=== PATIENT | male | born 1985 | race Caucasian/White ===

== ENCOUNTER 2021-05-23 08:01 | Day surgery (SDC) | payer OTHER ==
[~2021-05-23] VITALS: Ht 182 cm; Wt 89.2 kg
[~2021-05-23 08:01] MED LIST: ACET500 PO; AMPDEX5 PO; CYCL10 PO; IBUP800 PO; MULVITA PO
--- NOTE | 2021-05-23 09:34 | NUR ---
[facility] in [facility] warming gown applied. History, Chart, Medications and Allergies reviewed before start of procedure.Lungs clear T/O to Auscultation. Patient confirms NPO status and agrees with scheduled surgery. Pre-Op teaching done. Pt verbalizes understanding. Patient States Post-Procedure ride home has been arranged. Patient reports completing Chlorhexadine shower X2 prior to admission to hospital.
--- NOTE | 2021-05-23 12:29 | NUR ---
RECIEVED PATIENT AND REPORT, VSS DRESSING CDI
--- NOTE | 2021-05-23 12:59 | NUR ---
Discharge instructions reviewed with patient. Patient verbalizes understanding. Copy given to patient to take home. Discharged via wheelchair to private car for ride home.
== END 2021-05-23 13:00 | disposition home or self-care (01) ==
LOC: ORSCMMR 08:01 → ORD 09:30 → ORSCMMR 13:00
PROVIDERS: Surgery
PROC: 0JB40ZZ Excision of Right Neck Subcutaneous Tissue and Fascia, Open Approach (ICD-10-PCS; principal; 2021-05-23 09:30)
PROC: 0JB50ZZ Excision of Left Neck Subcutaneous Tissue and Fascia, Open Approach (ICD-10-PCS; principal; 2021-05-23 09:30)
DX: D17.0 Benign lipomatous neoplasm of skin and subcutaneous tissue of head, face and neck (principal); Z87.891 Personal history of nicotine dependence; Z79.899 Other long term (current) drug therapy
CPT/HCPCS: 88304; J0690; J1100; J1885; J2250; J2405; J2704; J3010; J7120

== ENCOUNTER → 2021-07-18 | Outpatient (CLI) | payer OTHER ==
[2021-07-21 01:09] LABS: CHLAMYDIA TRACHOMATIS, NAA Negative (Negative)
== END | disposition home or self-care (01) ==
LOC: LAB 14:45 → LAB SHORT 14:45
PROVIDERS: Family Medicine
DX: N50.819 Testicular pain, unspecified (principal)
CPT/HCPCS: 87491; 87591

== ENCOUNTER 2021-11-22 22:26 | Emergency (ER) | payer OTHER ==
[~2021-11-22] VITALS: Ht 182.9 cm; Wt 90.7 kg
[2021-11-22] MEDS ORDERED: ALPR.25 PO (22:35)
[2021-11-23] MEDS ORDERED: SIME80CH PO (00:07)
[2021-11-23] MEDS ORDERED: DOCU100 PO (00:07)
== END 2021-11-23 00:16 | disposition home or self-care (01) ==
LOC: ER 22:26
DX: K59.03 Drug induced constipation (principal); T40.2X5A Adverse effect of other opioids, initial encounter; Z87.891 Personal history of nicotine dependence
CPT/HCPCS: 99283

== ENCOUNTER 2022-07-07 03:19 | Inpatient (IN) | payer OTHER ==
[~2022-07-07] VITALS: Ht 182.9 cm; Wt 81.7 kg
[~2022-07-07 03:19] MED LIST changes: +ALPR.25 PO; +DOCU100 PO; +SIME80CH PO
[2022-07-07 04:05] LABS: BASOPHILS ABSOLUTE AUTO 0.03 K/mm3 (0.00-0.23); BASOPHILS PERCENT AUTO 0 % (0-2); EOSINOPHILS PERCENT AUTO 0 % (0-6); Hematocrit 42.8 % (37.0-53.0); Hemoglobin 14.4 g/dL (13.5-17.5); IMMATURE GRAN ABSOLUTE AUTO 0.01 K/mm3 (0.00-0.10); IMMATURE GRAN PERCENT AUTO 0 % (0-1); LYMPHOCYTES ABSOLUTE AUTO 1.25 K/mm3 (0.84-5.20); LYMPHOCYTES PERCENT AUTO 15 % (21-46); MONOCYTES ABSOLUTE AUTO 0.78 K/mm3 (0.16-1.47); MONOCYTES PERCENT AUTO 10 % (4-13); Mean Corpuscular HGB 32.7 pg (26.0-34.0); Mean Corpuscular HGB Conc 33.6 g/dL (31.5-36.5); Mean Corpuscular Volume 97 fL (80-100); Mean Platelet Volume 10.7 fL (9.1-12.4); NEUTROPHILS ABSOLUTE AUTO 6.12 K/mm3 (1.96-9.15); NEUTROPHILS PERCENT AUTO 75 % (41-73); Platelet Count 109 K/mm3 (150-400); RDW Coefficient Variation 13.9 % (11.7-14.2); RDW Standard Deviation 50.2 fL (35.1-46.3); White Blood Cell Count 8.19 K/mm3 (4.00-11.30)
[2022-07-07 04:30] LABS: Magnesium, Blood 1.9 mg/dL (1.6-2.4)
[2022-07-07 04:47] LABS: Albumin, Blood 4.1 g/dL (3.4-5.0); Bilirubin, Total 0.4 mg/dL (0.1-1.0); Bun/Creatinine Ratio 17.9 (12.0-20.0); Calcium, Blood 8.3 mg/dL (8.5-10.1); Creatinine, Blood 0.56 mg/dL (0.60-1.20); Potassium, Blood 3.9 mmol/L (3.5-5.5); Total Protein, Blood 8.1 g/dL (6.4-8.2)
[2022-07-07] MEDS ORDERED: SERT25 PO (10:39)
--- NOTE | 2022-07-07 16:59 | NUR ---
SHIFT SUMMARY S/P ALCOHOLIC PANCREATITIS, A/O X4, VSS, TOLERATING PO (WATER c PO MEDS), PAIN BETTER MANAGED AFTER INCREASING FENTANYL TO 50 MCG, WITHDRAW SYMPTOMS REMAIN MILD OTHER THAN TREMORS BUT MANAGED WITH ORDERED MEDS (SEE EMAR). NO ACUTE EVENTS THIS SHIFT, WILL CTM AND REPEAT CIWA AND REPORT TO ONCOMING NOC RN.
--- NOTE | 2022-07-08 04:53 | NUR ---
SHIFT SUMMARY PT CONTINUES TO HAVE INTERMITTENT ABD PAIN, MEDICAITING PER EMAR. PT REPORTS THAT HE IS HUNGRY. PT CONTINUES TO BE NPO PER ORDERS. NO N/V. IVF FLUID PER ORDERS. CIWA'S UNDER 8, AVERAGE SCORE 4. HE HAS NOT REQUIRED LIBRIUM OR ATIVAN THIS SHIFT. PT HAS BEEN INDEPENDENT IN THE ROOM, BED IN LOWEST POSITION, CALL LIGHT WITHIN REACH.
[2022-07-08 05:38] LABS: Albumin, Blood 3.4 g/dL (3.4-5.0); Anion Gap 6 mmol/L (6-16); Blood Urea Nitrogen 5 mg/dL (8-24); Bun/Creatinine Ratio 10.4 (12.0-20.0); CO2, Blood 27 mmol/L (21-32); Calcium, Blood 6.8 mg/dL (8.5-10.1); Chloride, Blood 103 mmol/L (98-108); Creatinine, Blood 0.48 mg/dL (0.60-1.20); Glomerular Filtration Rate 138 (60-); Glucose, Blood 80 mg/dL (70-99); Phosphorus, Blood 1.2 mg/dL (2.5-4.9); Potassium, Blood 3.8 mmol/L (3.5-5.5); Sodium, Blood 136 mmol/L (136-145)
--- NOTE | 2022-07-08 18:38 | NUR ---
SHIFT SUMMARY PT A/O X4 AND IND IN ROOM. PT ADMITTED FOR PAIN MANAGEMENT RELATED TO PANCREATITIS. PT EXPERIENCING ETOH WITHDRAWAL AND TREATED PER EMR. SEE MAR HISTORY. ADVANCED TO CLEAR LIQUIDS AND TOLERATING DIET WELL. VSS.
--- NOTE | 2022-07-09 05:18 | NUR ---
SHIFT SUMMARY PT SLEPT FOR A GOOD PORTION OF THE SHIFT AFTER BEING MEDICATED FOR ETOH WITHDRAWAL AND PAIN JUST SHORTLY BEFORE SHIFT CHANGE. CIWA SCORES HAVE BEEN LOW THIS SHIFT HIGHEST SCORE WAS 4. PT SHOWING SOME MILD ANXIETY, NO AGITATION. DENIES VISUAL OR AUDITORY HALLUCINATIONS. PT CONTINUES TO HAVE ABD PAIN, HE HAS BEEN ABLE TO KEEP DOWN CLEAR LIQUIDS. PT HAS BEEN INDEPENDENT IN THE ROOM. CALLS APPROPRIATELY. NO ACUTE CHANGES OVERNIGHT, BED IN LOWEST POSITION, CALL LIGHT WITHIN REACH.
[2022-07-09 06:01] LABS: Albumin, Blood 3.1 g/dL (3.4-5.0); Anion Gap 9 mmol/L (6-16); Blood Urea Nitrogen 3 mg/dL (8-24); Bun/Creatinine Ratio 5.5 (12.0-20.0); CO2, Blood 27 mmol/L (21-32); Calcium, Blood 6.6 mg/dL (8.5-10.1); Chloride, Blood 100 mmol/L (98-108); Creatinine, Blood 0.54 mg/dL (0.60-1.20); Glomerular Filtration Rate 133 (60-); Glucose, Blood 182 mg/dL (70-99); Potassium, Blood 3.2 mmol/L (3.5-5.5); Sodium, Blood 136 mmol/L (136-145)
[2022-07-09 06:03] LABS: Phosphorus, Blood 0.9 mg/dL (2.5-4.9)
--- NOTE | 2022-07-09 07:30 | NUR ---
ASSUMED CARE: PT RESTING IN BED AT THIS TIME. NIGHT RN REPORTS CIWA HIGH 8 OVERNIGHT. NO ACUTE NEEDS AT THIS TIME.
--- NOTE | 2022-07-09 14:55 | NUR ---
ARRIVAL TO SURGICAL UNIT PT A&Ox4, VSS, SpO2> 92% RA. PT DENIES PAIN AND DIFFICULTY TO TALK. FAMILY AT BEDSIDE.
[2022-07-09] MEDS ORDERED: CYCL10 PO (15:50)
[2022-07-09] MEDS ORDERED: AMPDEX10 PO (15:51)
[2022-07-09] MEDS ORDERED: SERT50 PO (15:51)
[2022-07-09] MEDS ORDERED: Percocet 5-3251 EACH PO (15:52)
--- NOTE | 2022-07-09 16:54 | NUR ---
DISCHARGE NOTE PT A&Ox4, VSS, SpO2> 92% RA. ETOH WITHDRAWAL REMAINED STABLE THIS SHIFT, NOT SCORING ABOVE A 3. PT TOLERATED AND RESPONDED WELL PO PAIN MEDICATION AND FULL LIQUID DIET. DISCHARGE INSTRUCTIONS PROVIDED. PT TO BE TAKEN OUT VIA WHEELCHAIR BY STAFF.
== END 2022-07-09 17:02 | disposition home or self-care (01) | DRG 439 ==
LOC: ER 03:19 → ERHOLD 05:24 → SURS 10:27
PROVIDERS: Emergency Medicine; Internal Medicine; ADMIT Internal Medicine
PROC: HZ2ZZZZ Detoxification Services for Substance Abuse Treatment (ICD-10-PCS; principal; 2022-07-07)
DX: K85.20 Alcohol induced acute pancreatitis without necrosis or infection (principal); F10.239 Alcohol dependence with withdrawal, unspecified; F32.A Depression, unspecified; G89.29 Other chronic pain; K76.0 Fatty (change of) liver, not elsewhere classified; E83.39 Other disorders of phosphorus metabolism; E87.6 Hypokalemia; M54.9 Dorsalgia, unspecified; F41.9 Anxiety disorder, unspecified; Z71.41 Alcohol abuse counseling and surveillance of alcoholic; Z87.891 Personal history of nicotine dependence; Z98.890 Other specified postprocedural states; Z79.899 Other long term (current) drug therapy
CPT/HCPCS: 36415; 76705; 80053; 80069; 83615; 83690; 83735; 84484; 85025; 93005; 93010; 96374; 96375; 96376; 99285-25; A9270; G0480; J1885; J2270; J2405; J3010; J3411; J7030; J7060

== ENCOUNTER 2022-07-13 19:45 | Emergency (ER) | payer OTHER ==
[~2022-07-13] VITALS: Ht 182.9 cm; Wt 97.5 kg
[~2022-07-13 19:45] MED LIST changes: +AMPDEX10 PO; +Percocet 5-3251 EACH PO; +SERT25 PO; +SERT50 PO
[2022-07-13 20:19] LABS: BASOPHILS ABSOLUTE AUTO 0.03 K/mm3 (0.00-0.23); BASOPHILS PERCENT AUTO 1 % (0-2); EOSINOPHILS ABSOLUTE AUTO 0.17 K/mm3 (0.00-0.68); EOSINOPHILS PERCENT AUTO 3 % (0-6); Hematocrit 42.9 % (37.0-53.0); Hemoglobin 14.3 g/dL (13.5-17.5); IMMATURE GRAN ABSOLUTE AUTO 0.02 K/mm3 (0.00-0.10); IMMATURE GRAN PERCENT AUTO 0 % (0-1); LYMPHOCYTES ABSOLUTE AUTO 1.54 K/mm3 (0.84-5.20); LYMPHOCYTES PERCENT AUTO 29 % (21-46); MONOCYTES ABSOLUTE AUTO 1.03 K/mm3 (0.16-1.47); MONOCYTES PERCENT AUTO 19 % (4-13); Mean Corpuscular HGB 32.8 pg (26.0-34.0); Mean Corpuscular HGB Conc 33.3 g/dL (31.5-36.5); Mean Corpuscular Volume 98 fL (80-100); Mean Platelet Volume 10.3 fL (9.1-12.4); NEUTROPHILS ABSOLUTE AUTO 2.57 K/mm3 (1.96-9.15); NEUTROPHILS PERCENT AUTO 48 % (41-73); Platelet Count 209 K/mm3 (150-400); RDW Coefficient Variation 13.8 % (11.7-14.2); RDW Standard Deviation 50.8 fL (35.1-46.3); Red Blood Cell Count 4.36 M/mm3 (4.30-5.90); White Blood Cell Count 5.36 K/mm3 (4.00-11.30)
[2022-07-13 20:37] LABS: Albumin, Blood 3.7 g/dL (3.4-5.0); Albumin/Globulin Ratio 0.8 (0.8-1.8); Bilirubin, Total 0.4 mg/dL (0.1-1.0); Bun/Creatinine Ratio 12.5 (12.0-20.0); Calcium, Blood 9.8 mg/dL (8.5-10.1); Creatinine, Blood 0.64 mg/dL (0.60-1.20); Globulin, Blood 4.6 g/dL (2.2-4.0); Potassium, Blood 4.2 mmol/L (3.5-5.5); Total Protein, Blood 8.3 g/dL (6.4-8.2)
[2022-07-13 22:43] LABS: Source, Urine Clean Catch
[2022-07-13 23:00] LABS: Appearance, Urine Clear (Clear); Bilirubin, Urine Neg (Neg); Blood, Urine Neg (Neg); Color, Urine Yellow (P-Yellow); Glucose Qualitative, Urine Neg (Neg); Ketones, Urine Neg (Neg); Leukocyte Esterase, Urine Neg (Neg); Nitrite, Urine Neg (Neg); Protein, Urine Neg (Neg); Specific Gravity, Urine 1.005 (1.003-1.022); Urobilinogen, Urine NORM (Normal)
[2022-07-13] MEDS ORDERED: OXAYDO5 M1 PO (23:25)
== END 2022-07-13 23:42 | disposition home or self-care (01) ==
LOC: ER 19:45
PROVIDERS: Emergency Medicine; Student in an Organized Health Care Education/Training Program
DX: R10.12 Left upper quadrant pain (principal); Z79.899 Other long term (current) drug therapy
CPT/HCPCS: 36415; 80053; 81003; 83690; 85025; 93005; 93010; J3010; J7120

== ENCOUNTER 2022-09-06 22:19 | Emergency (ER) | payer OTHER ==
[~2022-09-06] VITALS: Ht 182.9 cm; Wt 95.2 kg
[~2022-09-06 22:19] MED LIST changes: +OXAYDO5 M1 PO
[2022-09-06] MEDS ORDERED: AMOCLA875 PO (22:41)
== END 2022-09-06 22:50 | disposition home or self-care (01) ==
LOC: ER 22:19
DX: K04.7 Periapical abscess without sinus (principal)
CPT/HCPCS: 99282; A9270

== ENCOUNTER → 2024-09-06 | Outpatient (CLI) | payer OTHER ==
[~2024-09-06] MED LIST changes: +AMOCLA875 PO
[2024-09-06 19:57] LABS: BASOPHILS ABSOLUTE AUTO 0.02 K/mm3 (0.00-0.23); BASOPHILS PERCENT AUTO 0 % (0-2); EOSINOPHILS ABSOLUTE AUTO 0.05 K/mm3 (0.00-0.68); EOSINOPHILS PERCENT AUTO 1 % (0-6); Hematocrit 42.7 % (37.0-53.0); Hemoglobin 14.2 g/dL (13.5-17.5); IMMATURE GRAN ABSOLUTE AUTO 0.01 K/mm3 (0.00-0.10); IMMATURE GRAN PERCENT AUTO 0 % (0-1); LYMPHOCYTES ABSOLUTE AUTO 1.88 K/mm3 (0.84-5.20); LYMPHOCYTES PERCENT AUTO 31 % (21-46); MONOCYTES ABSOLUTE AUTO 0.73 K/mm3 (0.16-1.47); MONOCYTES PERCENT AUTO 12 % (4-13); Mean Corpuscular HGB 31.1 pg (26.0-34.0); Mean Corpuscular HGB Conc 33.3 g/dL (31.5-36.5); Mean Corpuscular Volume 94 fL (80-100); Mean Platelet Volume 11.6 fL (9.1-12.4); NEUTROPHILS ABSOLUTE AUTO 3.38 K/mm3 (1.96-9.15); NEUTROPHILS PERCENT AUTO 56 % (41-73); Platelet Count 175 K/mm3 (150-400); RDW Coefficient Variation 13.5 % (11.7-14.2); Red Blood Cell Count 4.56 M/mm3 (4.30-5.90); White Blood Cell Count 6.07 K/mm3 (4.00-11.30)
[2024-09-06 20:36] LABS: Alanine Aminotransfer (ALT/SGP 53 U/L (12-78); Albumin, Blood 3.8 g/dL (3.4-5.0); Albumin/Globulin Ratio 0.9 (0.8-1.8); Alk Phos 91 U/L (50-136); Anion Gap 10 mmol/L (3-11); Aspartate Aminotrans (AST/SGOT 64 U/L (12-37); Bilirubin, Total 0.3 mg/dL (0.1-1.0); Blood Urea Nitrogen 13 mg/dL (8-24); Bun/Creatinine Ratio 18.2 (12.0-20.0); CHOL/HDL RATIO 2.8; CO2, Blood 25 mmol/L (21-32); Calcium, Blood 9.2 mg/dL (8.5-10.1); Chloride, Blood 106 mmol/L (98-108); Cholesterol 153 mg/dL (50-200); Creatinine, Blood 0.72 mg/dL (0.60-1.20); Globulin, Blood 4.1 g/dL (2.2-4.0); Glomerular Filtration Rate 121 (60-); Glucose, Blood 77 mg/dL (70-99); HDL Cholesterol 54 mg/dL (>39); LDL/HDL RATIO 1.2; Low Density Lipoprotein Chol 65 mg/dL (0-110); Potassium, Blood 4.2 mmol/L (3.5-5.5); Sodium, Blood 137 mmol/L (136-145); Total Protein, Blood 7.9 g/dL (6.4-8.2); Triglycerides 170 mg/dL (30-140); Very Low Density Lipoprot Chol 34 mg/dL (6-28)
== END ==
LOC: LAB SHORT 18:10 → LAB 18:10
PROVIDERS: Physician Assistant
DX: Z51.81 Encounter for therapeutic drug level monitoring (principal); Z79.899 Other long term (current) drug therapy
CPT/HCPCS: 80053; 80061; 82306; 83036; 84443; 85025

== ENCOUNTER 2024-09-13 14:21 | Emergency (ER) | payer OTHER ==
[~2024-09-13] VITALS: Ht 182.9 cm; Wt 102.1 kg
[2024-09-13 14:52] VITALS: BP 129/85
== END 2024-09-13 14:54 | disposition home or self-care (01) ==
LOC: ER 14:21
DX: H00.12 Chalazion right lower eyelid (principal); Z87.891 Personal history of nicotine dependence
CPT/HCPCS: 99282